=== PATIENT | female | born 1965 | race African-American/Black ===

== ENCOUNTER 2019-04-11 20:56 | Inpatient (IN) | payer MEDICAID, OTHER ==
[~2019-04-11] VITALS: Ht 162.6 cm; Wt 67.2 kg
[~2019-04-11 20:56] MED LIST: ERGOCALCIFEROL 50,000 UNIT(1.25MG) CAP PO SCH
[2019-04-11 21:34] LABS: Basophils # (auto) 0.1 uL; Eosinophils # (auto) 0.2 uL; Hematocrit 23.3 % (36.0-46.0); Monocytes # (auto) 0.3 uL; Nucleated Red Blood Cells % 0.1 %; Platelet Count (auto) 360 10^3/uL (140-450); Red Blood Cells 2.46 10^6/uL (4.0-5.20); White Blood Cell 6.4 10^3/uL (4.4-10.8)
[2019-04-11 21:37] LABS: Basophils % (auto) 1.5 % (0.0-2.0); Eosinophils % (auto) 2.5 % (0.0-7.0); Hemoglobin 7.9 g/dL (12.2-16.2); Lymphocytes # (auto) 2.7 uL; Lymphocytes % (auto) 41.7 % (10.0-50.0); Mean Corpuscular Hemoglobin 32.2 pg (28.0-32.0); Mean Corpuscular Volume 94.7 fL (80.0-100.0); Monocytes % (auto) 4.7 % (0.0-12.0); Neutrophils # (auto) 3.2 uL; Neutrophils % (auto) 49.6 % (37.0-80.0); Red Cell Distribution Width 15.5 % (11.8-14.3)
[2019-04-11 21:52] LABS: Alanine Aminotransferase 21 U/L (13-56); Albumin 4.2 g/dL (3.4-5.0); Anion Gap 4 (5-15); Aspartate Aminotransferase 26 U/L (15-37); BUN/Creatinine Ratio 13.2; Blood Urea Nitrogen 18 mg/dL (7-18); Calcium 9.4 mg/dL (8.5-10.1); Carbon Dioxide 29 mmol/L (21-32); Chloride 108 mmol/L (98-107); GFR African American 52 mL/min; GFR Non-African American 43 mL/min; Glucose 109 mg/dL (74-106); Magnesium 1.9 mg/dL (1.6-2.6); Potassium 3.3 mmol/L (3.5-5.1); Sodium 141 mmol/L (136-145)
[2019-04-11 21:55] LABS: INR 1.08 (0.9-1.15); Partial Thromboplastin Time 33.5 sec (23.64-32.05)
[2019-04-11 21:57] LABS: Alkaline Phosphatase 70 U/L (45-117); Bilirubin, Total 0.3 mg/dL (0.2-1.0); Total Protein 7.9 g/dL (6.4-8.2)
[2019-04-12] MEDS ORDERED: KETOROLAC TROMETH 60MG/2ML VIAL IM ONE (04:00)
[2019-04-12] MEDS ORDERED: LEVOTHYROXINE SODIUM 25 MCG TAB PO ONE (05:00)
[2019-04-12] MEDS ORDERED: MORPHINE SULF INJ 2 MG/ML SYRINGE 1ML IV PRN (05:15)
[2019-04-12] MEDS ORDERED: NITROGLYCERIN 0.4 MG SL TAB SL PRN (05:15)
--- NOTE | 2019-04-12 06:00 | NUR ---
MS admit from [facility]HRELINDA,CANDIDA admitted to tele room 0235. Patient oriented to GALO MCDOWELL, primary RN, unit, room, bed, and unit policies. Room air; 2 LO2 via NC prn for comfort, pain level 6/10 intermittent pain in chest; ambulates independently currently; uses prn walker/cane at baseline. Bed locked in lowest position, side rails up x2, call light wtihin reach, and guard present at bedside for inmate status. IV 20 g in left AC IID insesrted on 04/11/19. Skin intact. Patient weighed by bedscale and encouraged to call if they need something. All questions and concerns addressed, patient verbalized understanding.
[2019-04-12] MEDS: PANTOPRAZOLE 40 MG TAB PO SCH (07:08)
[2019-04-12] MEDS: LEVOTHYROXINE SODIUM 50 MCG TAB PO SCH (07:08)
[2019-04-12 07:43] VITALS: BP 127/84
[2019-04-12] MEDS ORDERED: NIFE90TA30 PO (08:00)
[2019-04-12] MEDS ORDERED: LEVO25TA6 PO (08:00)
[2019-04-12] MEDS ORDERED: ATOR20TA PO (08:00)
[2019-04-12] MEDS ORDERED: BUSP15TA60 PO (08:00)
[2019-04-12] MEDS ORDERED: OMEP20TA PO (08:00)
[2019-04-12] MEDS ORDERED: FERR325T18 PO (08:00)
[2019-04-12] MEDS ORDERED: ASPI-404 PO (08:00)
--- NOTE | 2019-04-12 08:00 | NUR ---
ASSESSMENT NOTE PATIENT IS ALERT ORIENTED X4, RESTING IN BED COMFORTABLY, NO DISTRESS , ABLE TO VERBALIS HER NEEDS, DENIES ANY PAIN OR SHORTAGE OF BREATH, PATIENT GUARD AT BED SIDE AT ALL TIMES
[2019-04-12 08:18] LABS: Basophils # (auto) 0 uL; Basophils % (auto) 0.7 % (0.0-2.0); Eosinophils # (auto) 0.2 uL; Eosinophils % (auto) 2.9 % (0.0-7.0); Hematocrit 25.6 % (36.0-46.0); Hemoglobin 8.9 g/dL (12.2-16.2); Lymphocytes # (auto) 2.5 uL; Lymphocytes % (auto) 42.7 % (10.0-50.0); Mean Corpuscular Hemoglobin 32.7 pg (28.0-32.0); Mean Corpuscular Hgb Conc. 34.8 g/dL (32.0-36.0); Mean Corpuscular Volume 93.9 fL (80.0-100.0); Monocytes # (auto) 0.2 uL; Neutrophils # (auto) 2.9 uL; Neutrophils % (auto) 49.7 % (37.0-80.0); Nucleated Red Blood Cells % 0.1 %; Platelet Count (auto) 403 10^3/uL (140-450); Red Blood Cells 2.73 10^6/uL (4.0-5.20); Red Cell Distribution Width 15.9 % (11.8-14.3); White Blood Cell 5.9 10^3/uL (4.4-10.8)
[2019-04-12 08:30] LABS: Albumin 4.2 g/dL (3.4-5.0); Calcium 9.4 mg/dL (8.5-10.1); Potassium 3.3 mmol/L (3.5-5.1)
[2019-04-12 08:35] LABS: BUN/Creatinine Ratio 11.7; Bilirubin, Total 0.4 mg/dL (0.2-1.0); Total Protein 8.3 g/dL (6.4-8.2)
[2019-04-12 09:00] VITALS: BP 134/83
[2019-04-12] MEDS: METOPROLOL SUCCINATE XL 50 MG TAB PO SCH (09:14)
[2019-04-12 13:00] VITALS: BP 144/79
--- NOTE | 2019-04-12 15:00 | NUR ---
DR LOPEZ IS HERE FOLLOWING ON PT WITH NEW NEW ORDERS
[2019-04-12] MEDS ORDERED: IOHEXOL 350 MG/ML 100ML IJ ONE ×2 (15:10→19:03)
[2019-04-12] MEDS ORDERED: POTASSIUM CHL 20 Meq TABLET PO ONE (15:15)
[2019-04-12 16:59] VITALS: BP 123/74
--- NOTE | 2019-04-12 18:20 | NUR ---
PATIENT CONTINUE TO BE NPO FOR CT ANGIO
[2019-04-12 20:00] VITALS: BP 113/72
--- NOTE | 2019-04-12 20:00 | NUR ---
Opening Shift Note Patient out of room for CT chest Angiogram.
--- NOTE | 2019-04-12 20:15 | NUR ---
Patient returned from CT chest angiogram without incident. No distress noted, denies pain. Encouraged to drink plenty of fluids. Patient up in bed eating her meal. Bed in low position and locked. Call light placed in reach. O2 @ 2L/min via N/C.
[2019-04-12 22:00] VITALS: BP 113/72
[2019-04-13 05:00] VITALS: BP 129/78
[2019-04-13] MEDS: PANTOPRAZOLE 40 MG TAB PO SCH (06:42)
[2019-04-13] MEDS: LEVOTHYROXINE SODIUM 50 MCG TAB PO SCH (06:42)
[2019-04-13 07:32] LABS: Potassium 3.7 mmol/L (3.5-5.1)
[2019-04-13 07:35] LABS: BUN/Creatinine Ratio 13.5
[2019-04-13 08:00] VITALS: BP 134/83
[2019-04-13 09:00] VITALS: BP 157/87
--- NOTE | 2019-04-13 09:30 | NUR ---
DR SMITH IS HERE FOLLOWING UP ON PT WITH NEW ORDERS
[2019-04-13] MEDS: METOPROLOL SUCCINATE XL 50 MG TAB PO SCH (09:44)
[2019-04-13] MEDS: ENOXAPARIN SOD 30 MG/0.3 ML SYRINGE SC SCH (09:46)
--- NOTE | 2019-04-13 10:00 | NUR ---
DR THOMPSON IS HERE FOLLOWING UP ON PT WITH NEW ORDERS
[2019-04-13] MEDS: D5W/SOD CHL 0.45% 1,000 ML IV SCH (11:53)
[2019-04-13 13:00] VITALS: BP 130/77
--- NOTE | 2019-04-13 15:00 | NUR ---
PATIENT IS AMBULATING IN THE HALLWAYS, TOLERATED WELL, NO DISTRESS NOTED.
[2019-04-13 17:00] VITALS: BP 150/81
--- NOTE | 2019-04-13 18:17 | NUR ---
PT CONTINUE STABLE, CONTINUE MONITORING
[2019-04-13 22:00] VITALS: BP 136/77
[2019-04-14] VITALS (7 sets, daily range): BP systolic 107–141; BP diastolic 40–91
[2019-04-14] MEDS: PANTOPRAZOLE 40 MG TAB PO SCH (05:59)
[2019-04-14] MEDS: LEVOTHYROXINE SODIUM 50 MCG TAB PO SCH (05:59)
--- NOTE | 2019-04-14 07:25 | NUR ---
Opening Shift Note Assumed care of patient, awake and alert. No S/S of distress/SOB or pain. Instructed on POC and to call for assist PRN, will continue to monitor for changes Q1hr and PRN.
[2019-04-14] MEDS ORDERED: ADENOSINE 56 MG in GIVE UN-DILUTED 0 ML IV STA (08:03)
--- NOTE | 2019-04-14 08:45 | NUR ---
PT REFUSING IV PT NEEDS SECOND IV FOR STRESS TEST. PT IS CURRENTLY REFUSING TO LET US TRY A SECOND IV. CURRENT IV IS IN THE LEFT AC 20G AND IS PATENT AND ASYMPTOMATIC
[2019-04-14] MEDS: METOPROLOL SUCCINATE XL 50 MG TAB PO SCH (10:00)
[2019-04-14] MEDS: D5W/SOD CHL 0.45% 1,000 ML IV SCH (10:16)
[2019-04-14] MEDS: ENOXAPARIN SOD 30 MG/0.3 ML SYRINGE SC SCH (10:18)
--- NOTE | 2019-04-14 12:45 | NUR ---
PT OFF UNIT FOR PROCEDURE
[2019-04-15] MEDS: D5W/SOD CHL 0.45% 1,000 ML IV SCH (02:30)
[2019-04-15 04:35] VITALS: BP 112/72
[2019-04-15] MEDS: PANTOPRAZOLE 40 MG TAB PO SCH (05:34)
[2019-04-15] MEDS: LEVOTHYROXINE SODIUM 50 MCG TAB PO SCH (05:35)
--- NOTE | 2019-04-15 07:40 | NUR ---
PT BROUGHT DOWN FOR PROCEDURE
[2019-04-15] MEDS ORDERED: IOHEXOL 350 MG/ML 100ML IJ ONE (08:07)
[2019-04-15] MEDS ORDERED: LIDOCAINE 2%HCL (LOCAL ANESTH.) INJ 20ML MDV ONE (08:07)
[2019-04-15 08:42] VITALS: BP 135/84
[2019-04-15] MEDS: METOPROLOL SUCCINATE XL 50 MG TAB PO SCH (09:49)
[2019-04-15] MEDS: ENOXAPARIN SOD 30 MG/0.3 ML SYRINGE SC SCH (09:49)
[2019-04-15] MEDS ORDERED: SODIUM CHL 0.9% 0 ML ONE ×2 (10:23→12:39)
[2019-04-15] MEDS ORDERED: ANGIOMAX 250 MG VIAL IV ONE ×2 (10:23→12:39)
[2019-04-15] MEDS ORDERED: fentaNYL CITRATE 100 MCG/2 ML VL ONE ×2 (10:23→12:39)
[2019-04-15] MEDS ORDERED: MIDAZOLAM HCL 1MG/1ML-2 ML VIAL ONE ×2 (10:23→12:39)
[2019-04-15] MEDS ORDERED: IODIXANOL 320MG/ML 100ML BTL IV ONE (10:25)
--- NOTE | 2019-04-15 11:42 | NUR ---
PT OFF UNIT FOR PROCEDURE AT THIS TIME. Addendum: 04/15/19 at 1142 by NEVAEH SANTOS RN RN Amended: Links added.
[2019-04-15] MEDS ORDERED: SODIUM CHLORIDE 0.9% 1,000 ML IV SCH (12:15)
--- NOTE | 2019-04-15 12:18 | NUR ---
RECEIVED REPORT FROM BACK HANGER KRYSTIN MAYFIELD.
--- NOTE | 2019-04-15 12:39 | NUR ---
Report received from April. CANDIDA CARODNA brought back to room following Cardiac catheterization, on field marketer and portable oxygen. Patient transferred to unit bed, connected to news reel cameraman #4 and oxygen. Catheterization site assessed for any bleeding, redness or swelling. Angioseal device in place. Pedal pulses on affected leg assessed for positive tissue perfusion. Patient instructed on need to notify staff immediately if any pain, burning or wetness to site, and any lower back pain. Patient educate All questions and concerns addressed, patient verbalized understanding of all education and instruction.
[2019-04-15] MEDS ORDERED: VERAPAMIL 2.5MG/ML INJ 2ML VIAL IV ONE (12:40)
--- NOTE | 2019-04-15 14:01 | NUR ---
NUTRITION ASSESSMENT NOTES Please refer to link notes of nutrition screen form filed under the intervention section of the plan of care for further details. Est. Needs: 1700 kcal to 2000 kcal (25-30 kcal/kgBW), 67 gms to 81 gms pro (1.0-1.2 gms/kgBW). Will continue to monitor pertinent labs and reassess nutrient need prn Thank you. Addendum: 04/15/19 at [address] Amended: Links added.
[2019-04-15 17:00] VITALS: BP 135/85
--- NOTE | 2019-04-15 19:15 | NUR ---
OPEN SHIFT NOTE PATIENT IS SITTING UP IN BED, NO S/S OF DISTRESS NOTED AT THIS TIME, DRESSING ON THE LEFT GROIN IS DRY AND INTACT. NO COMPLAINTS OF PAIN AT THIS TIME. POC DISCUSSED AND QUESTIONS ANSWERED. BED IS LOCKED IN LOWEST POSITION WITH SIDE RAILS UP X2 FOR SAFETY. CALL LIGHT IS WITHIN REACH AND PATIENT ENCOURAGED TO CALL IF NEEDS ANYTHING. WILL CONTINUE TO ROUND Q1HR AND PRN.
[2019-04-15 22:08] VITALS: BP 99/38
[2019-04-16 05:27] VITALS: BP_SYST 146; BP_SYST 154; BP_DIAS 76; BP_DIAS 96
[2019-04-16] MEDS: PANTOPRAZOLE 40 MG TAB PO SCH (05:43)
[2019-04-16] MEDS: LEVOTHYROXINE SODIUM 50 MCG TAB PO SCH (05:44)
[2019-04-16 09:00] VITALS: BP 135/73
[2019-04-16] MEDS: ENOXAPARIN SOD 30 MG/0.3 ML SYRINGE SC SCH (09:48)
[2019-04-16] MEDS: METOPROLOL SUCCINATE XL 50 MG TAB PO SCH (09:48)
--- NOTE | 2019-04-16 12:30 | NUR ---
MD CLAU SMITH AT BEDSIDE. NEW ORDER RECEIVED.
[2019-04-16 13:00] VITALS: BP 141/75
[2019-04-16 14:02] VITALS: BP 141/75
--- NOTE | 2019-04-16 15:50 | NUR ---
Discharge instructions given as ordered. Encourage to follow up with PMD as instructed. All questions and concerns addressed. Patient verbalized understanding. Medication reconciliation form completed and copy given to patient. IV removed with catheter intact, pressure dressing applied. Telemetry unit returned to ICU. Patient transported to detention transport via vehicle via wheelchair with all personal belongings, accompanied by detention guards. No distress noted at time of departure.
[2019-04-18] MEDS ORDERED: ERGOCALCIFEROL 50,000 UNIT(1.25MG) CAP PO SCH (10:00)
== END 2019-04-16 16:40 | DRG 287 ==
LOC: EDBD 20:56 → ER 20:59 → EEVIPCON 20:59 → TELE 21:00 → TELE-EAST 04-12 05:58
PROVIDERS: ADMIT Internal Medicine; ATTEND Internal Medicine
PROC: 4A023N8 Measurement of Cardiac Sampling and Pressure, Bilateral, Percutaneous Approach (ICD-10-PCS; principal; 2019-04-15)
PROC: B211YZZ Fluoroscopy of Multiple Coronary Arteries using Other Contrast (ICD-10-PCS; 2019-04-15)
PROC: B215YZZ Fluoroscopy of Left Heart using Other Contrast (ICD-10-PCS; 2019-04-15)
DX: R07.89 Other chest pain (principal); I43 Cardiomyopathy in diseases classified elsewhere; D64.9 Anemia, unspecified; N18.3 Chronic kidney disease, stage 3 (moderate); I12.9 Hypertensive chronic kidney disease with stage 1 through stage 4 chronic kidney disease, or unspecified chronic kidney disease; E03.9 Hypothyroidism, unspecified; G47.30 Sleep apnea, unspecified; E78.00 Pure hypercholesterolemia, unspecified; E78.5 Hyperlipidemia, unspecified; I37.1 Nonrheumatic pulmonary valve insufficiency; M79.7 Fibromyalgia; Z90.710 Acquired absence of both cervix and uterus; Z82.3 Family history of stroke; Z82.49 Family history of ischemic heart disease and other diseases of the circulatory system; Z98.51 Tubal ligation status; Z83.3 Family history of diabetes mellitus; Z79.899 Other long term (current) drug therapy
CPT/HCPCS: 36415; 71045; 71275; 78452; 80048; 80053; 83735; 83880; 84443; 84484; 85025; 85045; 85610; 85730; 86850; 86900; 86901; 87081; 93005; 93017; 93460; 99291; C1751; G0378; J0153; J2250; J7042; Q9967